=== PATIENT | female | born 1935 | race Two or more races ===

== ENCOUNTER 2020-09-14 06:19 | Day surgery (SDC) | payer OTHER ==
[~2020-09-14] VITALS: Ht 157.5 cm; Wt 99.8 kg
[~2020-09-14 06:19] MED LIST: ALEN70TA74 PO; BIOT1SUB PO; CINN500T PO; CLON0.1T PO; FERR28TA2 PO; FLUT100I IN; FURO20TA3 PO; GABA300C10 PO; GLIP10TA9 PO; LEVO150T10 PO; LOSA25TA38 PO; METF-370 PO; MILK1000 OR; MULT-927 PO; NIFE1TAB30 PO
[2020-09-14] MEDS ORDERED: BUPIVACAINE 0.25% INJ 50ML VIAL ONE (06:46)
[2020-09-14] MEDS ORDERED: LIDOCAINE W/ EPINEPHRINE 1% 20ML VIAL ONE (06:46)
[2020-09-14] MEDS ORDERED: VANCOMYCIN HCL 1000 MG VL ONE (06:47)
[2020-09-14] MEDS ORDERED: CIPROFLOXACIN 400MG/200ML 200 ML IV ONE (07:32)
[2020-09-14] MEDS ORDERED: MIDAZOLAM HCL 1MG/1ML-2 ML VIAL ONE (07:39)
[2020-09-14] MEDS ORDERED: fentaNYL CITRATE 100 MCG/2 ML VL ONE (07:39)
[2020-09-14] MEDS ORDERED: KETAMINE HCL 0 ML ONE (07:40)
[2020-09-14] MEDS ORDERED: PROPOFOL 10 MG/ML 20 ML IV ONE (07:41)
[2020-09-14] MEDS ORDERED: ONDANSETRON HCL 4 MG/2 ML VIAL ONE (07:41)
[2020-09-14] MEDS ORDERED: LIDOCAINE 2% (LOCAL ANESTH.) PF 5ml SDV ONE (07:41)
[2020-09-14 08:30] VITALS: BP 129/55
[2020-09-14] MEDS ORDERED: ONDANSETRON HCL 4 MG/2 ML VIAL IV PRN (08:45)
== END 2020-09-14 08:50 | disposition home or self-care (01) ==
LOC: SUR 06:19
PROVIDERS: ATTEND Anesthesiology
DX: M54.5 Low back pain (principal); E66.9 Obesity, unspecified; I10 Essential (primary) hypertension; E11.9 Type 2 diabetes mellitus without complications; Z68.41 Body mass index [BMI] 40.0-44.9, adult; Z20.822 Contact with and (suspected) exposure to COVID-19; Z98.890 Other specified postprocedural states; Z88.1 Allergy status to other antibiotic agents; Z90.710 Acquired absence of both cervix and uterus; Z79.899 Other long term (current) drug therapy; Z53.8 Procedure and treatment not carried out for other reasons
CPT/HCPCS: J0744; J2001; J2704; U0003; J2250; J2405; J3490

== ENCOUNTER → 2021-01-21 | Day surgery (SDC) | payer OTHER ==
[~2021-01-21] VITALS: Ht 157.5 cm; Wt 95.3 kg
[~2021-01-21] MED LIST changes: +ALOE500C PO; +ALP15OS OP; +ASCO100076 PO; +BUPIVACAINE 0.25% INJ 50ML VIAL ONE; +CALC-338 OR; +CHOL500014 PO; +CYAN1TAB14 PO; +DORZ1SOL2 OP; +GLUC1TAB22 PO; +LACT1CAP5 PO; +LATA0.0020 OP; +LIDOCAINE W/ EPINEPHRINE 1% 20ML VIAL ONE; +LUTE1CAP9 PO; +POTA10TA51 PO; +VANCOMYCIN HCL 1000 MG VL ONE; +[UNRECOGNIZED DRUG - CODE] PO; +ceFAZolin 1GM/50ML 0 ML IV ONE
[2021-01-21 12:22] VITALS: BP 130/57
== END | disposition home or self-care (01) ==
LOC: SUR 12:09
PROVIDERS: ATTEND Anesthesiology
DX: M48.061 Spinal stenosis, lumbar region without neurogenic claudication (principal); Z20.822 Contact with and (suspected) exposure to COVID-19; Z88.1 Allergy status to other antibiotic agents; Z68.38 Body mass index [BMI] 38.0-38.9, adult; Z90.710 Acquired absence of both cervix and uterus; Z98.890 Other specified postprocedural states; Z79.899 Other long term (current) drug therapy; Z53.8 Procedure and treatment not carried out for other reasons
CPT/HCPCS: 82962; J3370; J3490; U0003; J0690

== ENCOUNTER → 2021-03-08 | Day surgery (SDC) | payer OTHER ==
[~2021-03-08] VITALS: Ht 157.5 cm; Wt 95.3 kg
[~2021-03-08] MED LIST changes: +ACCU-CHEK COMFORT CURVE STRIP VI ONE; +ALBUTEROL SULF 2.5 MG/0.5ML(0.5%) NEB SOLN NEB ONE; +GLYCOPYRROLATE 0.2 MG/ML 1ML VIAL ONE; +IPRATROPIUM BROM 0.5 MG/2.5ML INH SOL NEB ONE; +KETAMINE HCL 10 ML ONE; +LIDOCAINE 2% (LOCAL ANESTH.) PF 5ml SDV ONE; +MIDAZOLAM HCL 2MG/2ML 2ml VIAL (1mg/ml) ONE; +ONDANSETRON HCL 4 MG/2 ML VIAL IV PRN; +ONDANSETRON HCL 4 MG/2 ML VIAL ONE; +PROPOFOL 10 MG/ML 20 ML IV ONE; -ceFAZolin 1GM/50ML 0 ML IV ONE; +ceFAZolin 1GM/50ML 100 ML IV ONE; +fentaNYL CITRATE 100 MCG/2 ML VL ONE
[2021-03-08 10:40] VITALS: BP 127/55
== END | disposition home or self-care (01) ==
LOC: SUR 03-01 06:23
PROVIDERS: ATTEND Anesthesiology
DX: M48.062 Spinal stenosis, lumbar region with neurogenic claudication (principal); M51.37 Other intervertebral disc degeneration, lumbosacral region; M47.27 Other spondylosis with radiculopathy, lumbosacral region; M46.1 Sacroiliitis, not elsewhere classified; M19.90 Unspecified osteoarthritis, unspecified site; I10 Essential (primary) hypertension; I25.10 Atherosclerotic heart disease of native coronary artery without angina pectoris; E11.40 Type 2 diabetes mellitus with diabetic neuropathy, unspecified; E03.9 Hypothyroidism, unspecified; M81.0 Age-related osteoporosis without current pathological fracture; J44.9 Chronic obstructive pulmonary disease, unspecified; E78.5 Hyperlipidemia, unspecified; Z90.49 Acquired absence of other specified parts of digestive tract; Z90.710 Acquired absence of both cervix and uterus; Z98.41 Cataract extraction status, right eye; Z98.42 Cataract extraction status, left eye; Z88.2 Allergy status to sulfonamides; Z20.822 Contact with and (suspected) exposure to COVID-19; Z79.890 Hormone replacement therapy; Z87.891 Personal history of nicotine dependence; Z79.84 Long term (current) use of oral hypoglycemic drugs
CPT/HCPCS: 22869; 22870; 72100; 76000; 82962; 94640; C1821; J0690; J2001; J2250; J2405; J2704; J3010; J3370; J3490; J7644; U0003

== ENCOUNTER 2022-04-05 15:20 | Emergency (ER) | payer OTHER ==
[~2022-04-05] VITALS: Ht 160 cm; Wt 109.0 kg
[~2022-04-05 15:20] MED LIST changes: -ACCU-CHEK COMFORT CURVE STRIP VI ONE; -ALBUTEROL SULF 2.5 MG/0.5ML(0.5%) NEB SOLN NEB ONE; -BUPIVACAINE 0.25% INJ 50ML VIAL ONE; -GLYCOPYRROLATE 0.2 MG/ML 1ML VIAL ONE; -IPRATROPIUM BROM 0.5 MG/2.5ML INH SOL NEB ONE; -KETAMINE HCL 10 ML ONE; -LIDOCAINE 2% (LOCAL ANESTH.) PF 5ml SDV ONE; -LIDOCAINE W/ EPINEPHRINE 1% 20ML VIAL ONE; -MIDAZOLAM HCL 2MG/2ML 2ml VIAL (1mg/ml) ONE; -ONDANSETRON HCL 4 MG/2 ML VIAL IV PRN; -ONDANSETRON HCL 4 MG/2 ML VIAL ONE; -PROPOFOL 10 MG/ML 20 ML IV ONE; -VANCOMYCIN HCL 1000 MG VL ONE; -ceFAZolin 1GM/50ML 100 ML IV ONE; -fentaNYL CITRATE 100 MCG/2 ML VL ONE
[2022-04-05] MEDS ORDERED: MORPHINE SULFATE 4 MG/ML SYR/VIAL IV ONE (17:15)
[2022-04-05 19:54] LABS: Basophils # (auto) 0.2 10 ^3/uL (0-0.2); Basophils % (auto) 0.9 % (0.0-2.0); Eosinophils # (auto) 0.1 10 ^3/uL (0-0.8); Eosinophils % (auto) 0.4 % (0.0-7.0); Hematocrit 37.9 % (36.0-46.0); Hemoglobin 12.5 g/dL (12.2-16.2); Lymphocytes # (auto) 2.2 10 ^3/uL (0.4-5.4); Lymphocytes % (auto) 12.2 % (10.0-50.0); Mean Corpuscular Hemoglobin 30.7 pg (28.0-32.0); Mean Corpuscular Hgb Conc. 32.9 g/dL (32.0-36.0); Mean Corpuscular Volume 93.2 fL (80.0-100.0); Monocytes # (auto) 0.8 10 ^3/uL (0-1.3); Monocytes % (auto) 4.6 % (0.0-12.0); Neutrophils % (auto) 81.9 % (37.0-80.0); Nucleated Red Blood Cells % 0.1 %; Red Blood Cells 4.06 10^6/uL (4.0-5.20); Red Cell Distribution Width 15.1 % (11.8-14.3); White Blood Cell 18.3 10^3/uL (4.4-10.8)
[2022-04-05 20:12] LABS: Albumin 3.3 g/dL (3.4-5.0); Calcium 9.6 mg/dL (8.5-10.1); INR 0.92 (0.9-1.15); Partial Thromboplastin Time 22.6 sec (24.6-33.4); Potassium 4.8 mmol/L (3.5-5.1)
[2022-04-05 20:15] LABS: Bilirubin, Total 0.3 mg/dL (0.2-1.0); Total Protein 7.6 g/dL (6.4-8.2)
[2022-04-05] MEDS ORDERED: MORPHINE SULFATE INJ 2 MG/ml SYRG IV ONE (21:00)
[2022-04-05] MEDS ORDERED: PATIENTS OWN MEDICATION (Potassium Chloride (Potassium Chloride Cr) 10 MEQ) PO SCH (22:00)
[2022-04-05] MEDS ORDERED: glipiZIDE 5 MG TAB PO SCH (22:00)
[2022-04-05] MEDS ORDERED: GABAPENTIN 300 MG CAP PO SCH (22:00)
[2022-04-05] MEDS ORDERED: FUROSEMIDE 20 MG TAB PO SCH (22:00)
[2022-04-05] MEDS ORDERED: INSULIN NPH Isophane (HUMAN) 1unit/0.01ml Susp(100units/ml) SC ONE ×2 (22:00→22:30)
[2022-04-06 01:23] VITALS: BP 140/41
[2022-04-06] MEDS ORDERED: metFORMIN HYDROCHLORIDE 500 MG TAB PO SCH (07:00)
== END 2022-04-06 01:42 | disposition short-term general hospital (02) ==
LOC: ER 15:20 → EDBD 15:20 → ER 04-06 01:42
DX: S72.401A Unspecified fracture of lower end of right femur, initial encounter for closed fracture (principal); I10 Essential (primary) hypertension; E11.9 Type 2 diabetes mellitus without complications; Z79.899 Other long term (current) drug therapy; Z88.2 Allergy status to sulfonamides; Z20.822 Contact with and (suspected) exposure to COVID-19; W19.XXXA Unspecified fall, initial encounter; Y93.89 Activity, other specified; Y92.89 Other specified places as the place of occurrence of the external cause; Y99.8 Other external cause status
CPT/HCPCS: 36415; 71045; 73502; 73562; 80053; 82962; 85025; 85610; 85730; 87426; 93005; 96372; 96374; 96376; 99285; J1815; J2270